=== PATIENT | female | born 1945 | race Caucasian/White ===

== ENCOUNTER 2017-10-23 10:12 | Day surgery (SDC) | payer MEDICARE, OTHER ==
[~2017-10-23] VITALS: Ht 162.6 cm; Wt 102.5 kg
[~2017-10-23 10:12] MED LIST: ASPI325 PO; ATEN100 PO; ATEN25 PO; ATEN50 PO; ATENOLOL; ATOR20 PO; CALCA500CH PO; CHOL10002 PO; Calcarb 600 W-1 EACH PO; Cephalexin500 MG PO; Coq-10100 MG PO; DIPATR PO; DOCU100 PO; FAMO20; FAMO20 PO; FEXPSEER; FEXPSEER PO; FISH1000; FISH1000 PO; FURO40 PO; GLUCOSAMINE CH1 EAC3; HCTZ; HYDCHL25 PO; METO50ER PO; MULVITMIND PO; Multiple Vitam1 EAC1 PO; OCUVITE EYE +1 EACH; OLME20 PO; OMEGA PO; ONDA4ODT MM; Ocuvite Lutein1 EACH PO; POTA8 PO; Prinivil10 MG PO; SULTRIDS PO; VITAMIN D32000 UNIT; Zofran Odt8 MG SL; [UNRECOGNIZED DRUG - OTHER]
[2017-10-23] MEDS ORDERED: ELIQUIS5 MG PO (10:41)
[2017-10-23] MEDS ORDERED: CARV25 PO (10:42)
[2017-10-23] MEDS ORDERED: OLME20 PO (10:43)
[2017-10-23] MEDS ORDERED: HYDCHL25 PO (10:43)
[2017-10-23] MEDS ORDERED: PRED20 PO (10:44)
== END 2017-10-23 13:55 | disposition home or self-care (01) ==
LOC: ORSCSDS 10:12
PROVIDERS: Otolaryngology
PROC: 03BS0ZX Excision of Right Temporal Artery, Open Approach, Diagnostic (ICD-10-PCS; principal; 2017-10-23 11:30)
DX: M31.6 Other giant cell arteritis (principal); I10 Essential (primary) hypertension; Z86.73 Personal history of transient ischemic attack (TIA), and cerebral infarction without residual deficits; Z79.899 Other long term (current) drug therapy; E66.01 Morbid (severe) obesity due to excess calories; Z68.37 Body mass index [BMI] 37.0-37.9, adult
CPT/HCPCS: 88305; 88313; J0171; J1100; J2250; J3010; J7120

== ENCOUNTER 2018-07-08 11:51 | Day surgery (SDC) | payer MEDICARE, OTHER ==
[~2018-07-08] VITALS: Ht 162.6 cm; Wt 97.2 kg
[~2018-07-08 11:51] MED LIST changes: +CARV25 PO; +ELIQUIS5 MG PO; +PRED20 PO
== END 2018-07-08 15:30 | disposition home or self-care (01) ==
LOC: ORSCSDS 11:51
PROVIDERS: Internal Medicine Gastroenterology
PROC: 0DJD8ZZ Inspection of Lower Intestinal Tract, Via Natural or Artificial Opening Endoscopic (ICD-10-PCS; principal; 2018-07-08 13:15)
DX: Z12.11 Encounter for screening for malignant neoplasm of colon (principal); K64.8 Other hemorrhoids; K57.30 Diverticulosis of large intestine without perforation or abscess without bleeding; Z86.010 Personal history of colon polyps; I10 Essential (primary) hypertension; E03.9 Hypothyroidism, unspecified; G47.33 Obstructive sleep apnea (adult) (pediatric); I48.0 Paroxysmal atrial fibrillation; E66.01 Morbid (severe) obesity due to excess calories; Z68.42 Body mass index [BMI] 45.0-49.9, adult; Z79.01 Long term (current) use of anticoagulants; Z79.899 Other long term (current) drug therapy
CPT/HCPCS: J1980; J2250

== ENCOUNTER 2019-03-26 16:51 | Emergency (ER) | payer MEDICARE, OTHER ==
[~2019-03-26] VITALS: Ht 162.6 cm; Wt 102.1 kg
== END 2019-03-26 19:25 | disposition left against medical advice (07) ==
LOC: ER 16:51
DX: Z53.21 Procedure and treatment not carried out due to patient leaving prior to being seen by health care provider (principal)

== ENCOUNTER → 2019-03-27 | Outpatient (CLI) | payer MEDICARE, OTHER ==
[2019-03-27 11:09] LABS: BASOPHILS ABSOLUTE AUTO 0.02 K/mm3 (0.00-0.23); BASOPHILS PERCENT AUTO 1 % (0-2); EOSINOPHILS ABSOLUTE AUTO 0.19 K/mm3 (0.00-0.68); EOSINOPHILS PERCENT AUTO 4 % (0-6); Hemoglobin 12.8 g/dL (11.5-16.0); IMMATURE GRAN ABSOLUTE AUTO 0.01 K/mm3 (0.00-0.10); IMMATURE GRAN PERCENT AUTO 0 % (0-1); LYMPHOCYTES ABSOLUTE AUTO 0.63 K/mm3 (0.84-5.20); LYMPHOCYTES PERCENT AUTO 14 % (21-46); MONOCYTES ABSOLUTE AUTO 0.37 K/mm3 (0.16-1.47); MONOCYTES PERCENT AUTO 8 % (4-13); Mean Corpuscular HGB 32.3 pg (26.0-34.0); Mean Corpuscular HGB Conc 32.8 g/dL (31.5-36.5); Mean Corpuscular Volume 99 fL (80-100); Mean Platelet Volume 9.6 fL (9.1-12.4); NEUTROPHILS ABSOLUTE AUTO 3.19 K/mm3 (1.96-9.15); NEUTROPHILS PERCENT AUTO 72 % (41-73); Platelet Count 191 K/mm3 (150-400); RDW Coefficient Variation 14.2 % (11.7-14.2); Red Blood Cell Count 3.96 M/mm3 (3.80-5.20); White Blood Cell Count 4.41 K/mm3 (4.00-11.30)
[2019-03-27 11:27] LABS: Albumin, Blood 3.4 g/dL (3.4-5.0); Albumin/Globulin Ratio 1.1 (0.8-1.8); Bilirubin, Total 0.5 mg/dL (0.1-1.0); Bun/Creatinine Ratio 23.4 (12.0-20.0); Calcium, Blood 9.1 mg/dL (8.5-10.1); Creatinine, Blood 0.94 mg/dL (0.40-1.00); Free Thyroxine 0.98 ng/dL (0.70-1.60); Globulin, Blood 3.2 g/dL (2.2-4.0); Potassium, Blood 4.1 mmol/L (3.5-5.5); Thyroid Stimulating Hormone 2.691 uIU/mL (0.360-4.800); Total Protein, Blood 6.6 g/dL (6.4-8.2)
== END | disposition home or self-care (01) ==
LOC: LAB SHORT 11:04 → LAB EV 11:04
PROVIDERS: General Practice
DX: R53.81 Other malaise (principal)
CPT/HCPCS: 80053; 84439; 84443; 85025

== ENCOUNTER → 2021-09-18 | Outpatient (CLI) | payer MEDICARE, OTHER ==
[2021-09-18 16:08] LABS: Source, Urine Clean Catch
[2021-09-18 16:26] LABS: Bacteria Rare /hpf; Squamous Epithelial Cells Few /hpf (Few)
== END | disposition home or self-care (01) ==
LOC: LAB SHORT 16:01 → LAB 16:01
PROVIDERS: Internal Medicine
DX: R31.9 Hematuria, unspecified (principal)
CPT/HCPCS: 81015; 87086

== ENCOUNTER → 2021-09-28 | Outpatient (CLI) | payer MEDICARE, OTHER | END | disposition home or self-care (01) | LOC: LAB SHORT 11:09 | DX: L30.8 Other specified dermatitis (principal) | CPT/HCPCS: 88304; 88312 ==

== ENCOUNTER → 2024-04-14 | Outpatient (CLI) | payer MEDICARE ==
[2024-04-15 18:25] LABS: Microalb/Creat Ratio UR, Rand 17.463 mg/g (0.000-30.000); Microalbumin, Random Urine 11.7 mg/L (0.000-20.000)
== END | disposition home or self-care (01) ==
LOC: LAB 17:00 → LAB SHORT 17:00
PROVIDERS: Family Medicine
DX: I10 Essential (primary) hypertension (principal)
CPT/HCPCS: 82043; 82570

== ENCOUNTER 2025-01-01 07:51 | Emergency (ER) | payer MEDICARE ==
[~2025-01-01] VITALS: Ht 165.1 cm; Wt 129.3 kg
[2025-01-01] MEDS ORDERED: NS 500 ML IV SCH (08:00)
[2025-01-01] MEDS ORDERED: Carvedilol 6.25 MG Tab PO ONE (08:15)
[2025-01-01] MEDS ORDERED: Apixaban 5 MG Tab PO ONE (08:15)
[2025-01-01] MEDS ORDERED: Midazolam HCl 1MG / ML 2ML Vial IV ONE (08:45)
[2025-01-01 10:03] LABS: Source, Urine Clean Catch
[2025-01-01 10:08] LABS: Appearance, Urine Clear (Clear); Bilirubin, Urine Neg (Neg); Blood, Urine 4+ (Neg); Color, Urine Yellow (P-Yellow); Glucose Qualitative, Urine Neg (Neg); Ketones, Urine Neg (Neg); Leukocyte Esterase, Urine 2+ (Neg); Nitrite, Urine Neg (Neg); Protein, Urine Neg (Neg); Specific Gravity, Urine 1.005 (1.003-1.022); Urobilinogen, Urine NORM (Normal)
[2025-01-01 10:15] LABS: Bacteria Few /hpf; Squamous Epithelial Cells Few /hpf (Few)
[2025-01-01] MEDS ORDERED: Furosemide 10 MG / ML 2ML Vial IV ONE (10:30)
[2025-01-01 12:11] LABS: Base Excess Venous 4.6 mmol/L; PCO2 Venous 43.4 mmHg (38-42); pH Blood Venous 7.43 (7.34-7.37)
[2025-01-01 12:14] LABS: BASOPHILS ABSOLUTE AUTO 0.03 K/mm3 (0.00-0.23); BASOPHILS PERCENT AUTO 1 % (0-2); EOSINOPHILS ABSOLUTE AUTO 0.18 K/mm3 (0.00-0.68); EOSINOPHILS PERCENT AUTO 3 % (0-6); Hematocrit 44.2 % (33.0-51.0); Hemoglobin 14.2 g/dL (11.5-16.0); IMMATURE GRAN ABSOLUTE AUTO 0.01 K/mm3 (0.00-0.10); IMMATURE GRAN PERCENT AUTO 0 % (0-1); LYMPHOCYTES ABSOLUTE AUTO 0.89 K/mm3 (0.84-5.20); LYMPHOCYTES PERCENT AUTO 15 % (21-46); MONOCYTES ABSOLUTE AUTO 0.57 K/mm3 (0.16-1.47); MONOCYTES PERCENT AUTO 10 % (4-13); Mean Corpuscular HGB 32.3 pg (26.0-34.0); Mean Corpuscular HGB Conc 32.1 g/dL (31.5-36.5); Mean Corpuscular Volume 101 fL (80-100); Mean Platelet Volume 9.9 fL (9.1-12.4); NEUTROPHILS ABSOLUTE AUTO 4.11 K/mm3 (1.96-9.15); NEUTROPHILS PERCENT AUTO 71 % (41-73); Platelet Count 232 K/mm3 (150-400); RDW Coefficient Variation 15.1 % (11.7-14.2); RDW Standard Deviation 56.1 fL (35.1-46.3); Red Blood Cell Count 4.39 M/mm3 (3.80-5.20); White Blood Cell Count 5.79 K/mm3 (4.00-11.30)
[2025-01-01 12:16] VITALS: BP 139/89
[2025-01-01 12:37] LABS: Albumin, Blood 3.1 g/dL (3.4-5.0); Bilirubin, Total 0.8 mg/dL (0.1-1.0); Bun/Creatinine Ratio 25.5 (12.0-20.0); Calcium, Blood 9.1 mg/dL (8.5-10.1); Creatinine, Blood 1.02 mg/dL (0.40-1.00); Globulin, Blood 3.2 g/dL (2.2-4.0); Magnesium, Blood 2.1 mg/dL (1.6-2.4); Potassium, Blood 3.9 mmol/L (3.5-5.5); Total Protein, Blood 6.3 g/dL (6.4-8.2)
[2025-01-01] MEDS ORDERED: FURO20 PO (13:20)
[2025-01-04] MEDS ORDERED: Veetids 500500 MG PO (10:34)
== END 2025-01-01 14:24 | disposition home or self-care (01) ==
LOC: ER 07:51
PROVIDERS: Student in an Organized Health Care Education/Training Program
DX: J81.1 Chronic pulmonary edema (principal); E87.70 Fluid overload, unspecified; I48.91 Unspecified atrial fibrillation; I10 Essential (primary) hypertension; E78.5 Hyperlipidemia, unspecified; K21.9 Gastro-esophageal reflux disease without esophagitis; Z79.899 Other long term (current) drug therapy; Z88.8 Allergy status to other drugs, medicaments and biological substances
CPT/HCPCS: 70450; 71046; 80053; 81001; 82140; 82803; 83735; 83880; 85025; 87086; 87147; 93005; 93010; 96361; 96374-59; 99285-25; A9270; C1751; J1940; J7030